=== PATIENT | female | born 1940 | race African-American/Black ===

== ENCOUNTER 2021-08-26 14:27 | Inpatient (IN) | payer OTHER ==
[~2021-08-26] VITALS: Ht 167.6 cm; Wt 70.5 kg
[2021-08-26] MEDS ORDERED: SODIUM CHLORIDE 0.9% 100 ML ONE ×2 (14:35→15:59)
[2021-08-26] MEDS ORDERED: IOHEXOL 350 MG/ML 100 ML VIAL ONE (14:35)
[2021-08-26] MEDS ORDERED: ASPI-1450 PO (14:40)
[2021-08-26] MEDS ORDERED: CHOL200016 PO (14:40)
[2021-08-26] MEDS ORDERED: ATEN-72 PO (14:40)
[2021-08-26] MEDS ORDERED: LOSA-382 PO (14:40)
[2021-08-26] MEDS ORDERED: CYAN50009 PO (14:40)
[2021-08-26] MEDS ORDERED: ATOR40TA28 PO (14:40)
[2021-08-26] MEDS ORDERED: ACET325S20 PR (14:40)
[2021-08-26] MEDS ORDERED: GUAI-487 PO (14:40)
[2021-08-26] MEDS ORDERED: ERGO500054 PO (14:40)
[2021-08-26] MEDS ORDERED: MECL-169 PO (14:40)
[2021-08-26] MEDS ORDERED: PREDAOS OD (14:40)
[2021-08-26 14:55] LABS: BASOPHILS % (AUTO) 1.1 % (0.0-2.0); EOSINOPHILS % (AUTO) 2.6 % (1.0-6.0); HEMATOCRIT 42.8 % (36-46); HEMOGLOBIN 14.2 g/dL (12.0-16.0); LYMPHOCYTES # (AUTO) 2.5 K/uL (1.0-4.8); LYMPHOCYTES % (AUTO) 22.3 % (22.0-44.0); MEAN CORPUSCULAR HEMOGLOBIN 29.5 pg (26.0-34.0); MEAN CORPUSCULAR HGB CONC 33.2 G/dL (31.0-37.0); MEAN CORPUSCULAR VOLUME 89 fL (80-100); MONOCYTES # (AUTO) 0.8 K/uL (0.1-1.0); MONOCYTES % (AUTO) 7.3 % (2.0-9.0); NEUTROPHILS # (AUTO) 7.4 K/uL (1.8-7.7); NEUTROPHILS % (AUTO) 66.7 % (40.0-70.0); PLATELET COUNT (AUTO) 277 K/uL (150-450); RED BLOOD CELL COUNT(AUTO) 4.81 MIL/uL (4.00-5.20); RED CELL DISTRIBUTION WIDTH 14.3 % (11.5-14.5)
[2021-08-26] MEDS ORDERED: LABETALOL HCL 5 MG/ML 20 ML VIAL IVP ONE ×2 (15:00→15:15)
[2021-08-26 15:08] LABS: CALCIUM, TOTAL 9.8 mg/dL (8.8-10.5); CREATININE 0.93 mg/dL (0.60-1.30); POTASSIUM 3.6 mmol/L (3.5-5.1)
[2021-08-26 15:10] LABS: INR 0.9 (0.9-1.1); PROTHROMBIN TIME 10.1 SEC (9.4-11.6)
[2021-08-26] MEDS ORDERED: ALTEPLASE IV ONE ×2 (15:15)
[2021-08-26] MEDS ORDERED: WATER FOR INJECTION STERILE IV ONE ×2 (15:15)
[2021-08-26] MEDS ORDERED: ALTEPLASE PER STROKE PROTOCOL CLINICAL ONE (15:15)
[2021-08-26 15:19] LABS: ALBUMIN 3.6 g/dL (3.4-5.0); TOTAL PROTEIN, SERUM 7.2 g/dL (6.4-8.2)
[2021-08-26] MEDS ORDERED: NiCARDipine HCL 25 MG in DEXTROSE 5%-WATER 240 ML IV ONE (15:30)
[2021-08-26] MEDS ORDERED: NiCARDipine HCL 25 MG in DEXTROSE 5%-WATER 240 ML IV PRN (15:30)
[2021-08-26 15:50] LABS: APPEARANCE,URINE CLEAR (CLEAR); BILIRUBIN,URINE NEGATIVE (NEGATIVE); GLUCOSE, URINE (UA) NEGATIVE (NEGATIVE); KETONES,URINE NEGATIVE (NEGATIVE); LEUKOCYTE ESTERASE ,URINE NEGATIVE (NEGATIVE); NITRATE,URINE NEGATIVE (NEGATIVE); OCCULT BLOOD,URINE NEGATIVE (NEGATIVE); PH,URINE 6.5 (5.0-8.0); PROTEIN,URINE NEGATIVE (NEGATIVE)
[2021-08-26 15:58] LABS: AMPHET/METH SCREEN,URINE NEGATIVE (NEGATIVE); BARBITURATE SCREEN, URINE NEGATIVE (NEGATIVE); BENZODIAZEPINES SCREEN,URINE NEGATIVE (NEGATIVE); CANNABINOID SCREEN,URINE NEGATIVE (NEGATIVE); COCAINE SCREEN,URINE NEGATIVE (NEGATIVE); METHADONE SCREEN, URINE NEGATIVE (NEGATIVE); OPIATE SCREEN,URINE NEGATIVE (NEGATIVE)
[2021-08-26 16:01] LABS: PHENCYCLIDINE SCREEN,URINE NEGATIVE (NEGATIVE)
[2021-08-26 16:07] LABS: BACTERIA,URINE None Seen /HPF (None Seen); RBC,URINE 0-2 /HPF (0-2); SQUAMOUS EPITHELIAL CELL,UR Rare /LPF (None Seen); WBC,URINE None Seen /HPF (0-5)
[2021-08-26] MEDS ORDERED: ONDANSETRON HCL 4 MG/2 ML VIAL IVP PRN ×2 (16:30→17:30)
[2021-08-26] MEDS ORDERED: 0.9% SODIUM CHLORIDE 10 ML SYRINGE IVP PRN (16:30)
[2021-08-26] MEDS ORDERED: ZOLPIDEM TARTRATE 5 MG TABLET PO PRN (17:30)
[2021-08-26] MEDS ORDERED: HYDROCODONE/ACETAMINOPHEN 5-325 MG TABLET PO PRN (17:30)
[2021-08-26] MEDS ORDERED: MAGNESIUM HYDROXIDE SUSPENSION 30 ML UDCUP PO PRN (17:30)
[2021-08-26] MEDS ORDERED: ACETAMINOPHEN 325 MG TABLET PO PRN (17:30)
[2021-08-26] MEDS ORDERED: BISACODYL 10 MG RECTAL RECTAL SUPPOSITORY PR PRN (17:30)
[2021-08-26] MEDS: MORPHINE SULFATE 2 MG/ML SYRINGE IVP PRN (17:35)
[2021-08-26] MEDS: HydrALAZINE HCL 20 MG/ML VIAL IVP PRN (18:04)
[2021-08-26 18:25] LABS: COVID AG,FIA SOURCE NASOPHARYNGEAL
[2021-08-26] MEDS: DOCUSATE SODIUM 100 MG CAPSULE PO SCH (20:23)
[2021-08-26] MEDS: ATORVASTATIN CALCIUM 20 MG TABLET PO SCH (20:23)
[2021-08-26 22:00] VITALS: BP 144/105
[2021-08-27] VITALS: BP 154/82
[2021-08-27] MEDS: HydrALAZINE HCL 20 MG/ML VIAL IVP PRN ×2 (00:04→14:50)
[2021-08-27 04:00] VITALS: BP 141/68
[2021-08-27 08:00] VITALS: BP 163/64
[2021-08-27] MEDS: ATENOLOL 50 MG TABLET PO SCH (09:00)
[2021-08-27] MEDS ORDERED: ATORVASTATIN CALCIUM 40 MG TABLET PO SCH (09:00)
[2021-08-27] MEDS ORDERED: CHOLECALCIFEROL (VIT D3) 2,000 UNITS [50 MCG] TABLET PO SCH ×2 (09:00)
[2021-08-27] MEDS: LOSARTAN POTASSIUM 50 MG TABLET PO SCH (09:00)
[2021-08-27] MEDS: PANTOPRAZOLE SODIUM 40 MG DR TABLET PO SCH (09:00)
[2021-08-27] MEDS ORDERED: ATENOLOL 50 MG TABLET PO SCH ×2 (09:00)
[2021-08-27] MEDS: DOCUSATE SODIUM 100 MG CAPSULE PO SCH ×2 (09:00→21:00)
[2021-08-27] MEDS ORDERED: LOSARTAN POTASSIUM 50 MG TABLET PO SCH ×2 (09:00)
[2021-08-27] MEDS: CHOLECALCIFEROL (VIT D3) 2,000 UNITS [50 MCG] TABLET PO SCH (09:00)
[2021-08-27 12:00] VITALS: BP 178/90
[2021-08-27] MEDS: ETHYL ALCOHOL 62% ANTISEPTIC NASAL INHALANT 0.6 ML AMPUL NASAL SCH ×2 (12:10→21:06)
[2021-08-27] MEDS: MORPHINE SULFATE 2 MG/ML SYRINGE IVP PRN (14:19)
[2021-08-27 14:28] LABS: BASOPHILS % (AUTO) 0.8 % (0.0-2.0); EOSINOPHILS % (AUTO) 0.1 % (1.0-6.0); HEMATOCRIT 41.5 % (36-46); HEMOGLOBIN 14.1 g/dL (12.0-16.0); LYMPHOCYTES # (AUTO) 1.2 K/uL (1.0-4.8); LYMPHOCYTES % (AUTO) 7.3 % (22.0-44.0); MEAN CORPUSCULAR HEMOGLOBIN 29.6 pg (26.0-34.0); MEAN CORPUSCULAR HGB CONC 33.9 G/dL (31.0-37.0); MEAN CORPUSCULAR VOLUME 87 fL (80-100); MONOCYTES # (AUTO) 0.9 K/uL (0.1-1.0); MONOCYTES % (AUTO) 5.9 % (2.0-9.0); NEUTROPHILS # (AUTO) 13.6 K/uL (1.8-7.7); PLATELET COUNT (AUTO) 276 K/uL (150-450); RED BLOOD CELL COUNT(AUTO) 4.76 MIL/uL (4.00-5.20); RED CELL DISTRIBUTION WIDTH 14.6 % (11.5-14.5)
[2021-08-27 14:35] LABS: ANION GAP 9 mmol/L (8-16); CALCIUM, TOTAL 9.6 mg/dL (8.8-10.5); CARBON DIOXIDE 31 mmol/L (22-29); CHLORIDE 102 mmol/L (98-107); CREATININE 0.87 mg/dL (0.60-1.30); GLUCOSE,RANDOM 141 mg/dL (70-110); POTASSIUM 3.5 mmol/L (3.5-5.1); SODIUM SERUM 142 mmol/L (136-145); UREA NITROGEN, BLOOD 13 mg/dL (7-18)
[2021-08-27 14:36] LABS: GLOMERULAR FILTR. RATE CALC > 60 mL/min (>60)
[2021-08-27] MEDS ORDERED: SODIUM CHLORIDE 0.45% 1,000 ML IV SCH (14:45)
[2021-08-27] MEDS ORDERED: SODIUM CHLORIDE 0.9% 1,000 ML IV ONE (15:00)
[2021-08-27] MEDS ORDERED: BENZOCAINE 20% 50 MCG/SPRAY 57 GM TP ONE (15:15)
[2021-08-27] MEDS ORDERED: LIDOCAINE 2% VISCOUS 15 ML SOLUTION UDCUP PO ONE (15:15)
[2021-08-27] MEDS ORDERED: NiCARDipine HCL 25 MG in DEXTROSE 5%-WATER 240 ML IV PRN (15:30)
[2021-08-27 15:34] LABS: NEUTROPHILS % (AUTO) 85.9 % (40.0-70.0)
[2021-08-27 16:00] VITALS: BP 114/62
[2021-08-27] MEDS ORDERED: GADOTERATE MEGLUMINE 10 MMOL/20 ML VIAL IVP ONE (16:20)
[2021-08-27 20:00] VITALS: BP 155/82
[2021-08-27] MEDS: ATORVASTATIN CALCIUM 20 MG TABLET PO SCH (21:00)
[2021-08-28] VITALS (7 sets, daily range): BP systolic 145–157; BP diastolic 81–101
[2021-08-28] MEDS: MORPHINE SULFATE 2 MG/ML SYRINGE IVP PRN (02:36)
[2021-08-28] MEDS: HydrALAZINE HCL 20 MG/ML VIAL IVP PRN (05:49)
[2021-08-28 08:40] LABS: BASOPHILS % (AUTO) 0.4 % (0.0-2.0); EOSINOPHILS % (AUTO) 0.1 % (1.0-6.0); HEMATOCRIT 41.8 % (36-46); LYMPHOCYTES # (AUTO) 0.6 K/uL (1.0-4.8); LYMPHOCYTES % (AUTO) 3.7 % (22.0-44.0); MEAN CORPUSCULAR HEMOGLOBIN 29.2 pg (26.0-34.0); MEAN CORPUSCULAR HGB CONC 33.5 G/dL (31.0-37.0); MEAN CORPUSCULAR VOLUME 87 fL (80-100); MONOCYTES # (AUTO) 1.2 K/uL (0.1-1.0); MONOCYTES % (AUTO) 6.7 % (2.0-9.0); NEUTROPHILS # (AUTO) 15.6 K/uL (1.8-7.7); PLATELET COUNT (AUTO) 270 K/uL (150-450); RED BLOOD CELL COUNT(AUTO) 4.79 MIL/uL (4.00-5.20); RED CELL DISTRIBUTION WIDTH 14.8 % (11.5-14.5)
[2021-08-28 08:41] LABS: NEUTROPHILS % (AUTO) 89.1 % (40.0-70.0)
[2021-08-28 08:47] LABS: ANION GAP 9 mmol/L (8-16); CALCIUM, TOTAL 9.4 mg/dL (8.8-10.5); CARBON DIOXIDE 27 mmol/L (22-29); CHLORIDE 104 mmol/L (98-107); CREATININE 0.73 mg/dL (0.60-1.30); GLUCOSE,RANDOM 150 mg/dL (70-110); POTASSIUM 3.7 mmol/L (3.5-5.1); SODIUM SERUM 140 mmol/L (136-145); UREA NITROGEN, BLOOD 16 mg/dL (7-18)
[2021-08-28 08:49] LABS: GLOMERULAR FILTR. RATE CALC > 60 mL/min (>60)
[2021-08-28] MEDS: ATENOLOL 50 MG TABLET PO SCH (09:00)
[2021-08-28] MEDS: DOCUSATE SODIUM 100 MG CAPSULE PO SCH ×2 (09:00→21:00)
[2021-08-28] MEDS: CHOLECALCIFEROL (VIT D3) 2,000 UNITS [50 MCG] TABLET PO SCH (09:00)
[2021-08-28] MEDS: LOSARTAN POTASSIUM 50 MG TABLET PO SCH (09:00)
[2021-08-28] MEDS ORDERED: ETHYL ALCOHOL 62% ANTISEPTIC NASAL INHALANT 0.6 ML AMPUL NASAL SCH (09:00)
[2021-08-28] MEDS: PANTOPRAZOLE SODIUM 40 MG DR TABLET PO SCH (09:00)
[2021-08-28] MEDS ORDERED: PERFLUTREN PROTEIN-A MICROSPHERES 0.22 MG/ML 3 ML VIAL IVP ONE ×2 (09:45→12:45)
[2021-08-28] MEDS ORDERED: LIDOCAINE 2% VISCOUS 15 ML SOLUTION UDCUP PO ONE (09:45)
[2021-08-28] MEDS ORDERED: FentaNYL CITRATE PF 100 MCG/2 ML VIAL IVP ONE (09:45)
[2021-08-28] MEDS ORDERED: BENZOCAINE 20% 50 MCG/SPRAY 57 GM TP ONE (09:45)
[2021-08-28] MEDS ORDERED: MIDAZOLAM HCL 2 MG/2 ML VIAL IVP ONE (09:45)
[2021-08-28] MEDS: ETHYL ALCOHOL 62% ANTISEPTIC NASAL INHALANT 0.6 ML AMPUL NASAL SCH ×2 (09:47→21:00)
[2021-08-28] MEDS ORDERED: NALOXONE HCL 0.4 MG/ML VIAL ONE (10:17)
[2021-08-28] MEDS ORDERED: FLUMAZENIL 0.1 MG/ML 5 ML VIAL IVP ONE (10:22)
[2021-08-28] MEDS: ASPIRIN 81 MG CHEWABLE TABLET PO SCH (16:47)
[2021-08-28] MEDS: ATORVASTATIN CALCIUM 20 MG TABLET PO SCH ×2 (21:11→21:16)
[2021-08-28] MEDS ORDERED: LORazepam 2 MG/ML VIAL IVP PRN (21:45)
[2021-08-29] MEDS: HydrALAZINE HCL 20 MG/ML VIAL IVP PRN ×2 (01:21→11:57)
[2021-08-29 04:07] VITALS: BP 147/91
[2021-08-29 08:04] VITALS: BP 155/58
[2021-08-29] MEDS: ASPIRIN 81 MG CHEWABLE TABLET PO SCH (08:31)
[2021-08-29] MEDS: LOSARTAN POTASSIUM 50 MG TABLET PO SCH (08:32)
[2021-08-29] MEDS: ETHYL ALCOHOL 62% ANTISEPTIC NASAL INHALANT 0.6 ML AMPUL NASAL SCH ×2 (08:32→21:29)
[2021-08-29] MEDS: PANTOPRAZOLE SODIUM 40 MG DR TABLET PO SCH (08:38)
[2021-08-29] MEDS: CHOLECALCIFEROL (VIT D3) 2,000 UNITS [50 MCG] TABLET PO SCH (08:38)
[2021-08-29] MEDS: ATENOLOL 50 MG TABLET PO SCH (08:38)
[2021-08-29] MEDS: DOCUSATE SODIUM 100 MG CAPSULE PO SCH ×2 (08:39→20:38)
[2021-08-29 10:18] LABS: CHOL/HDL RATIO 1.7 (3.9-5.7)
[2021-08-29 11:19] VITALS: BP 153/98
[2021-08-29] MEDS: DEXTROSE 5%-0.45% SODIUM CHL 1,000 ML IV SCH (13:43)
[2021-08-29] MEDS ORDERED: ACETAMINOPHEN 650 MG RECTAL SUPPOSITORY PR PRN (15:30)
[2021-08-29 15:39] VITALS: BP 156/97
[2021-08-29 16:36] LABS: BILIRUBIN,URINE NEGATIVE (NEGATIVE); GLUCOSE, URINE (UA) NEGATIVE (NEGATIVE); KETONES,URINE 40 mg/dL (NEGATIVE); LEUKOCYTE ESTERASE ,URINE SMALL (NEGATIVE); NITRATE,URINE NEGATIVE (NEGATIVE); OCCULT BLOOD,URINE LARGE (NEGATIVE); PROTEIN,URINE POS 1+ (NEGATIVE)
[2021-08-29 16:46] LABS: APPEARANCE,URINE SLIGHTLY CLOUDY (CLEAR)
[2021-08-29 16:52] LABS: BACTERIA,URINE Moderate /HPF (None Seen); RBC,URINE >100 /HPF (0-2); SQUAMOUS EPITHELIAL CELL,UR Moderate /LPF (None Seen)
[2021-08-29] MEDS: CLINDAMYCIN 600 MG/D5% WATER 50 ML IV SCH (17:26)
[2021-08-29] MEDS: MORPHINE SULFATE 2 MG/ML SYRINGE IVP PRN (18:28)
[2021-08-29 19:34] VITALS: BP 125/51
[2021-08-29 23:54] VITALS: BP 165/96
[2021-08-30] MEDS: CLINDAMYCIN 600 MG/D5% WATER 50 ML IV SCH ×3 (00:29→17:50)
[2021-08-30] MEDS: HydrALAZINE HCL 20 MG/ML VIAL IVP PRN (03:42)
[2021-08-30 04:13] VITALS: BP 167/105
[2021-08-30 07:34] VITALS: BP 154/89
[2021-08-30 08:10] LABS: BASOPHILS % (AUTO) 0.8 % (0.0-2.0); EOSINOPHILS % (AUTO) 0.2 % (1.0-6.0); HEMOGLOBIN 14.1 g/dL (12.0-16.0); LYMPHOCYTES # (AUTO) 0.9 K/uL (1.0-4.8); LYMPHOCYTES % (AUTO) 6.1 % (22.0-44.0); MEAN CORPUSCULAR HGB CONC 34.3 G/dL (31.0-37.0); MEAN CORPUSCULAR VOLUME 87 fL (80-100); MONOCYTES # (AUTO) 1.5 K/uL (0.1-1.0); MONOCYTES % (AUTO) 9.8 % (2.0-9.0); NEUTROPHILS # (AUTO) 12.7 K/uL (1.8-7.7); NEUTROPHILS % (AUTO) 83.1 % (40.0-70.0); PLATELET COUNT (AUTO) 261 K/uL (150-450); RED BLOOD CELL COUNT(AUTO) 4.69 MIL/uL (4.00-5.20); RED CELL DISTRIBUTION WIDTH 14.7 % (11.5-14.5)
[2021-08-30 08:26] LABS: ANION GAP 8 mmol/L (8-16); CALCIUM, TOTAL 9.4 mg/dL (8.8-10.5); CARBON DIOXIDE 28 mmol/L (22-29); CHLORIDE 104 mmol/L (98-107); CREATININE 0.67 mg/dL (0.60-1.30); GLOMERULAR FILTR. RATE CALC > 60 mL/min (>60); GLUCOSE,RANDOM 143 mg/dL (70-110); SODIUM SERUM 140 mmol/L (136-145); UREA NITROGEN, BLOOD 14 mg/dL (7-18)
[2021-08-30] MEDS: LOSARTAN POTASSIUM 50 MG TABLET PO SCH (09:00)
[2021-08-30] MEDS: DOCUSATE SODIUM 100 MG CAPSULE PO SCH ×2 (09:00→20:31)
[2021-08-30] MEDS: PANTOPRAZOLE SODIUM 40 MG DR TABLET PO SCH (09:00)
[2021-08-30] MEDS: CHOLECALCIFEROL (VIT D3) 2,000 UNITS [50 MCG] TABLET PO SCH (09:00)
[2021-08-30] MEDS: ATENOLOL 50 MG TABLET PO SCH (09:00)
[2021-08-30] MEDS: DEXTROSE 5%-0.45% SODIUM CHL 1,000 ML IV SCH (09:12)
[2021-08-30] MEDS: ETHYL ALCOHOL 62% ANTISEPTIC NASAL INHALANT 0.6 ML AMPUL NASAL SCH ×2 (09:12→20:31)
[2021-08-30] MEDS ORDERED: POTASSIUM CHL 10 MEQ/WATER 50 ML IV PRN (10:00)
[2021-08-30] MEDS: POTASSIUM CHL 10 MEQ/WATER 50 ML IV PRN ×7 (10:26→23:28)
[2021-08-30] MEDS ORDERED: *CLINICAL-LEVOFLOXACIN IVPB DOSING CLINICAL ONE ×2 (14:45)
[2021-08-30] MEDS ORDERED: LEVOFLOXACIN 750 MG/D5% WATER 150 ML IV SCH (15:00)
[2021-08-30 15:45] VITALS: BP 142/72
[2021-08-30 20:00] VITALS: BP 130/68
[2021-08-30] MEDS: ATORVASTATIN CALCIUM 20 MG TABLET PO SCH (20:31)
[2021-08-30 23:56] VITALS: BP 140/70
[2021-08-31] MEDS: CLINDAMYCIN 600 MG/D5% WATER 50 ML IV SCH ×2 (01:13→08:02)
[2021-08-31] MEDS: MORPHINE SULFATE 2 MG/ML SYRINGE IVP PRN (03:38)
[2021-08-31 04:26] VITALS: BP 161/81
[2021-08-31] MEDS: DEXTROSE 5%-0.45% SODIUM CHL 1,000 ML IV SCH (04:30)
[2021-08-31 07:38] VITALS: BP 190/100
[2021-08-31] MEDS: CHOLECALCIFEROL (VIT D3) 2,000 UNITS [50 MCG] TABLET PO SCH (08:01)
[2021-08-31] MEDS: DOCUSATE SODIUM 100 MG CAPSULE PO SCH ×2 (08:01→21:58)
[2021-08-31] MEDS: LOSARTAN POTASSIUM 50 MG TABLET PO SCH (08:01)
[2021-08-31] MEDS: ATENOLOL 50 MG TABLET PO SCH (08:01)
[2021-08-31] MEDS: PANTOPRAZOLE SODIUM 40 MG DR TABLET PO SCH (08:01)
[2021-08-31] MEDS: ETHYL ALCOHOL 62% ANTISEPTIC NASAL INHALANT 0.6 ML AMPUL NASAL SCH (08:02)
[2021-08-31] MEDS: HydrALAZINE HCL 20 MG/ML VIAL IVP PRN (09:15)
[2021-08-31 11:32] VITALS: BP 155/87
[2021-08-31 12:15] LABS: ANION GAP 10 mmol/L (8-16); BASOPHILS % (AUTO) 0.3 % (0.0-2.0); CALCIUM, TOTAL 9.4 mg/dL (8.8-10.5); CARBON DIOXIDE 26 mmol/L (22-29); CHLORIDE 100 mmol/L (98-107); CREATININE 0.63 mg/dL (0.60-1.30); EOSINOPHILS % (AUTO) 0 % (1.0-6.0); GLUCOSE,RANDOM 166 mg/dL (70-110); HEMATOCRIT 38.8 % (36-46); HEMOGLOBIN 13.1 g/dL (12.0-16.0); LYMPHOCYTES # (AUTO) 0.5 K/uL (1.0-4.8); MEAN CORPUSCULAR HEMOGLOBIN 29.3 pg (26.0-34.0); MEAN CORPUSCULAR HGB CONC 33.7 G/dL (31.0-37.0); MEAN CORPUSCULAR VOLUME 87 fL (80-100); MONOCYTES # (AUTO) 1.7 K/uL (0.1-1.0); MONOCYTES % (AUTO) 9.7 % (2.0-9.0); NEUTROPHILS # (AUTO) 15.4 K/uL (1.8-7.7); PLATELET COUNT (AUTO) 263 K/uL (150-450); POTASSIUM 3.2 mmol/L (3.5-5.1); RED BLOOD CELL COUNT(AUTO) 4.46 MIL/uL (4.00-5.20); SODIUM SERUM 136 mmol/L (136-145); UREA NITROGEN, BLOOD 10 mg/dL (7-18)
[2021-08-31 12:17] LABS: GLOMERULAR FILTR. RATE CALC > 60 mL/min (>60)
[2021-08-31] MEDS: PIPERACILLIN/TAZO 3.375 GM/D5W 50 ML IV SCH ×2 (13:41→20:36)
[2021-08-31] MEDS: POTASSIUM CHL 10 MEQ/WATER 50 ML IV PRN (13:42)
[2021-08-31 15:22] VITALS: BP 127/69
[2021-08-31 15:41] LABS: URIC ACID 1.5 mg/dL (2.6-7.2)
[2021-08-31 18:47] LABS: APPEARANCE,URINE SL CLOUDY (CLEAR); BILIRUBIN,URINE NEGATIVE (NEGATIVE); GLUCOSE, URINE (UA) 100 mg/dL (NEGATIVE); KETONES,URINE TRACE mg/dL (NEGATIVE); LEUKOCYTE ESTERASE ,URINE NEGATIVE (NEGATIVE); NITRATE,URINE NEGATIVE (NEGATIVE); OCCULT BLOOD,URINE SMALL (NEGATIVE); PROTEIN,URINE SEE CONFIRM (NEGATIVE)
[2021-08-31 19:15] VITALS: BP 148/72
[2021-08-31 19:32] LABS: SULFOSALICYLIC ACID,URINE 4+ (Negative)
[2021-08-31 19:34] LABS: BACTERIA,URINE Rare /HPF (None Seen); RBC,URINE 0-2 /HPF (0-2); WBC,URINE 0-2 /HPF (0-5)
[2021-08-31 19:39] LABS: URIC ACID CRYSTALS,URINE Many /LPF (None Seen)
[2021-08-31] MEDS: ATORVASTATIN CALCIUM 20 MG TABLET PO SCH (21:58)
[2021-08-31 23:08] VITALS: BP 133/80
[2021-09-01] MEDS: DEXTROSE 5%-0.45% SODIUM CHL 1,000 ML IV SCH (01:14)
[2021-09-01] MEDS: PIPERACILLIN/TAZO 3.375 GM/D5W 50 ML IV SCH ×2 (01:15→07:19)
[2021-09-01 04:38] VITALS: BP 136/76
[2021-09-01 07:16] LABS: BASOPHILS % (AUTO) 0.4 % (0.0-2.0); EOSINOPHILS % (AUTO) 0.9 % (1.0-6.0); HEMATOCRIT 43.9 % (36-46); HEMOGLOBIN 14.8 g/dL (12.0-16.0); LYMPHOCYTES # (AUTO) 1.1 K/uL (1.0-4.8); LYMPHOCYTES % (AUTO) 7.2 % (22.0-44.0); MEAN CORPUSCULAR HEMOGLOBIN 29.6 pg (26.0-34.0); MEAN CORPUSCULAR HGB CONC 33.8 G/dL (31.0-37.0); MEAN CORPUSCULAR VOLUME 87 fL (80-100); MONOCYTES # (AUTO) 1.6 K/uL (0.1-1.0); MONOCYTES % (AUTO) 10.4 % (2.0-9.0); NEUTROPHILS # (AUTO) 12.8 K/uL (1.8-7.7); NEUTROPHILS % (AUTO) 81.1 % (40.0-70.0); PLATELET COUNT (AUTO) 291 K/uL (150-450); RED BLOOD CELL COUNT(AUTO) 5.02 MIL/uL (4.00-5.20); RED CELL DISTRIBUTION WIDTH 14.4 % (11.5-14.5)
[2021-09-01 08:06] LABS: ANION GAP 7 mmol/L (8-16); CALCIUM, TOTAL 9.7 mg/dL (8.8-10.5); CARBON DIOXIDE 29 mmol/L (22-29); CHLORIDE 100 mmol/L (98-107); CREATININE 0.77 mg/dL (0.60-1.30); FERRITIN 982 ng/mL (8-252); GLUCOSE,RANDOM 111 mg/dL (70-110); SODIUM SERUM 136 mmol/L (136-145); UREA NITROGEN, BLOOD 12 mg/dL (7-18)
[2021-09-01 08:21] LABS: GLOMERULAR FILTR. RATE CALC > 60 mL/min (>60)
[2021-09-01] MEDS ORDERED: POTASSIUM CHLORIDE 20 MEQ ER TABLET PO PRN (08:30)
[2021-09-01 08:31] LABS: C-REACTIVE PROTEIN QUANT 29.68 mg/dL (0.00-0.30)
[2021-09-01 08:45] VITALS: BP 155/104
[2021-09-01] MEDS: DOCUSATE SODIUM 100 MG CAPSULE PO SCH ×2 (09:01→20:40)
[2021-09-01] MEDS: CHOLECALCIFEROL (VIT D3) 2,000 UNITS [50 MCG] TABLET PO SCH (09:01)
[2021-09-01] MEDS: ATENOLOL 50 MG TABLET PO SCH (09:01)
[2021-09-01] MEDS: PANTOPRAZOLE SODIUM 40 MG DR TABLET PO SCH (09:01)
[2021-09-01] MEDS: LOSARTAN POTASSIUM 50 MG TABLET PO SCH (09:01)
[2021-09-01 11:26] VITALS: BP 135/77
[2021-09-01] MEDS ORDERED: AMPICILLIN SODIUM/SULBACTAM NA 3 GM in SODIUM CHLORIDE 0.9% 100 ML IV SCH (12:00)
[2021-09-01] MEDS ORDERED: AMPI3VIA IV (16:23)
[2021-09-01] MEDS ORDERED: ATOR20TA86 PO (16:24)
[2021-09-01] MEDS ORDERED: PANT-31 PO (16:25)
[2021-09-01] MEDS ORDERED: DOCU-270 PO (16:25)
[2021-09-01 19:40] VITALS: BP 159/79
[2021-09-01] MEDS: ATORVASTATIN CALCIUM 20 MG TABLET PO SCH (20:40)
== END 2021-09-01 21:40 | disposition short-term general hospital (02) | DRG 61 ==
LOC: EMS 14:28 → ICU 23:20 → 5S 08-28 19:19 → 5N 08-31 20:50 → 5S 08-31 21:02
PROVIDERS: ADMIT Internal Medicine; ATTEND Internal Medicine
PROC: 3E03317 Introduction of Other Thrombolytic into Peripheral Vein, Percutaneous Approach (ICD-10-PCS; principal; 2021-08-26)
PROC: 05HY33Z Insertion of Infusion Device into Upper Vein, Percutaneous Approach (ICD-10-PCS; 2021-08-27)
DX: I63.511 Cerebral infarction due to unspecified occlusion or stenosis of right middle cerebral artery (principal); G93.6 Cerebral edema; L03.114 Cellulitis of left upper limb; N39.0 Urinary tract infection, site not specified; G81.94 Hemiplegia, unspecified affecting left nondominant side; R65.10 Systemic inflammatory response syndrome (SIRS) of non-infectious origin without acute organ dysfunction; R47.01 Aphasia; M81.0 Age-related osteoporosis without current pathological fracture; E78.5 Hyperlipidemia, unspecified; I10 Essential (primary) hypertension; I51.3 Intracardiac thrombosis, not elsewhere classified; Z20.822 Contact with and (suspected) exposure to COVID-19; R00.0 Tachycardia, unspecified; R47.1 Dysarthria and anarthria; W18.39XA Other fall on same level, initial encounter; Z79.82 Long term (current) use of aspirin; Z86.73 Personal history of transient ischemic attack (TIA), and cerebral infarction without residual deficits; Z79.899 Other long term (current) drug therapy; Z90.710 Acquired absence of both cervix and uterus; Y93.89 Activity, other specified; Y92.89 Other specified places as the place of occurrence of the external cause; Y99.8 Other external cause status
CPT/HCPCS: 36245; 36569; 51702; 70450; 70496; 70498; 70553; 71045; 71250; 72192; 74150; 74230; 76937; 80048; 80053; 80061; 81001; 81002; 82728; 84132; 84145; 84484; 84550; 85025; 85379; 85610; 85730; 86140; 86850; 86900; 86901; 87040; 87081; 87086; 92526; 92610; 92611; 93005; 93306; 93312; 93880; 93970; 93971; 97112; 97162; 97167; 97530; 97535; 99291; 99292; G0378; G0480; J0295; J0360; J1956; J2060; J2250; J2270; J2310; J2405; J2543; J2997; J3010; J3480; J3490; J7030; J7050; J7060; Q9967; 36415-L1; 36415-TC; U0003